=== PATIENT | female | born 1940 | race Hispanic/Latino ===

== ENCOUNTER 2017-04-22 16:18 | Emergency (ER) | payer OTHER, MEDICARE, BC ==
[~2017-04-22] VITALS: Ht 162.6 cm; Wt 98.4 kg
[~2017-04-22 16:18] MED LIST: ASPIR 8181 MG PO; AZITHROMYCIN250 MG PO; CEPHALEXIN PO; CEPHALEXIN500 MG PO; FEXOFENADINE HC60 MG PO; GABAPENTIN300 MG PO; GLUCOSAMINE1000 MG PO; LANSOPRAZOLE30 MG PO; LEVOTHYROXINE112 MCG PO; MYRBETRIQ PO; NEXIUM40 MG PO; NITROFURANTOIN100 MG PO; OMEPRAZOLE40 MG PO; SYNTHROID125 MCG PO; VITAMIN B-12 PO; VITAMIN C PO
--- OUTSIDE RECORDS SUMMARY | 2017-04-22 16:21 | XMS REPORT | Clinical Summary ---
Author Author [facility] Organization [facility] Address Unknown Phone Unavailable Care Team Providers Care Cocktail Lounge Manager Name Role Phone Asked, Given PCP Unavailable Allergies No Known Allergies Current Medications Prescription Sig. Disp. Refills Start End Date Status Date azithromycin (ZITHROMAX) 07/11/19 Active 250 MG tablet 17 YUVAFEM 10 mcg vaginal 06/15/19 Active tablet 17 levothyroxine (SYNTHROID, TOME 1 TABLETA TODOS LOS 1 06/17/19 Active LEVOXYL) 112 mcg tablet BLANCO 17 omeprazole (PriLOSEC) 40 08/11/19 Active MG capsule 17 terconazole (TERAZOL 7) 05/24/19 Active 0.4 % vaginal cream 17 nitrofurantoin, Take 100 mg by mouth 2 Active macrocrystal-monohydrate, (two) times a day. (MACROBID) 100 MG capsule meloxicam (MOBIC) 15 mg 11/24/19 Active tablet 17 nitrofurantoin 11/14/19 Active (MACRODANTIN) 100 MG 17 capsule triamcinolone (KENALOG) 11/30/19 Active 0.1 % cream 17 ciprofloxacin (CIPRO) 500 Take 1 tablet (500 mg 14 tablet 0 06/24/19 07/01/19 MG tablet total) by mouth 2 (two) 17 17 times a day for 7 days. cefuroxime (CEFTIN) 500 Take 1 tablet (500 mg 14 tablet 0 07/11/19 07/18/19 MG tabletIndications: total) by mouth 2 (two) 17 17 Acute cystitis without times a day for 7 days. hematuria nitrofurantoin, Take 1 capsule (100 mg 20 capsule 0 10/25/19 macrocrystal-monohydrate, total) by mouth 2 (two) 17 17 (MACROBID) 100 MG times a day for 10 days. capsuleIndications: Acute cystitis without hematuria minocycline (MINOCIN) 100 Take 1 capsule (100 mg 20 capsule 0 02/22/19 MG capsule total) by mouth 2 (two) 18 18 times a day for 10 days. nitrofurantoin, Take 1 capsule (100 mg 14 capsule 0 04/11/19 macrocrystal-monohydrate, total) by mouth 2 (two) 18 18 (MACROBID) 100 MG times a day for 7 days. capsuleIndications: Urinary tract infection without hematuria, site unspecified Active Problems Not on file Encounters Date Type Specialty Care Team Description 04/17/2017 Orders Only Urology Martha Jose MA Urinary tract infection without hematuria, site unspecified (Primary Dx) 04/17/2017 Telephone Urology Carlos Duong MD 04/10/2017 Orders Only Urology Martha Jose MA Urinary tract infection without hematuria, site unspecified (Primary Dx) 04/09/2017 Telephone Urology Carlos Duong MD 03/06/2017 Telephone Urology Martha Jose MA 02/12/2017 Telephone Urology Wen Rebollar MA 02/09/2017 Clinical Urology Carloz Mcclain MD Urinary tract infection Support without hematuria, site unspecified (Primary Dx) 02/09/2017 Telephone Urology Carlos Duong MD 01/03/2017 Telephone Urology Carlos Duong MD 12/18/2016 Office Visit Carlos Fontana Urinary tract infection MD Whitney without hematuria, site unspecified (Primary Dx) 12/13/2016 Telephone UrologCarlos Han Urinary tract infection MD Whitney without hematuria, site unspecified (Primary Dx) 11/13/2016 Procedure visit UrologCarlos Han Urinary tract infection MD Whitney without hematuria, site unspecified (Primary Dx) 11/08/2016 Telephone Carlos Fontana MD 10/24/2016 Orders Only Urology Martha Jose MA Acute cystitis without hematuria (Primary Dx) 10/20/2016 Telephone Urology Lynda Mitchell MA Urinary tract infection, site unspecified (Primary Dx) 09/11/2016 Telephone Urology Carlos Duong MD 08/30/2016 Telephone Urology Carlos Duong MD 08/29/2016 Telephone Urology Carlos Duong MD 08/28/2016 Office Visit Urology Carlos Duong Recurrent UTI (Primary N., Dx) 08/22/2016 Telephone Urology Lynda Mitchell MA Urinary tract infection, site unspecified (Primary Dx) 08/15/2016 Office Visit Urology Carlos Duong Recurrent UTI (Primary NDevin, Dx); Atrophic vaginitis 08/01/2016 Telephone Urology Carlos Duong Urinary tract infection, MD Whitney site unspecified (Primary Dx) 07/10/2016 Telephone Urology Martha Jose MA 07/10/2016 Orders Only Urology Martha Jose MA Acute cystitis without hematuria (Primary Dx) 07/06/2016 Orders Only Urology Carlos Duong MD 06/23/2016 Telephone Urology Lynda Mitchell MA 06/20/2016 Clinical Urology Carlos Duong Urinary tract infection, Support MD Whitney site unspecified (Primary Dx) after 04/21/2016 Family History Relation Name Status Comments Father Mother Social History Tobacco Use Types Packs/Day Years Used Date Never Smoker Alcohol Use Drinks/Week oz/Week Comments No Sex Assigned at Date Recorded Not on file Last Filed Vital Signs Not on file Plan of Treatment Health Maintenance Due Date Last Done Comments COLONOSCOPY 1992 MAMMOGRAM 1992 ZOSTER VACCINE 2002 PNEUMOCOCCAL 09/07/2007 POLYSACCHARIDE VACCINE AGE 65 AND OVER PNEUMOCOCCAL-13 09/07/2007 INFLUENZA VACCINE 09/05/2016 Results * Urine culture (03/06/2017 1:26 PM) Only the most recent of 7 results within the time period is included. Component Value Ref Range Urine culture No growth Specimen Performing Laboratory U[facility] Narrative Performed at:[id number] Junior Account Manager: Dimas Singh MD, Phone:[phone] * POC urinalysis dipstick (12/18/2016 2:25 PM) Only the most recent of 3 results within the time period is included. Component Value Ref Range Color urine, POC Yellow Clarity urine, POC Clear Glucose urine, POC Negative Negative Bilirubin urine, POC Negative Negative Ketones urine, POC Negative Negative Specific gravity urine, 1.025 1.005 - 1.030 POC Blood urine, POC Negative Negative pH urine, POC 5.5 5.0, 5.5, 6.0, 6.5, 7.0, 7.5, 8.0, 8.5 Protein urine, POC Negative Negative Urobilinogen urine, POC <2.0 <2.0 Nitrite urine, POC Negative Negative Leukocyte esterase urine, Negative Negative POC Specimen Performing Laboratory Urine * POC uroflowmetry (08/28/2016 3:40 PM) Component Value Ref Range Flow rate 215 ml/sec Specimen Performing Laboratory Urine Impressions Peak Flow: 9 ml/s Mean Flow; 7 ml/s Voiding Time: 29 sec Flow Time: 27 sec Time to Max Flow: 7 sec Voided VOlume: 215 ml * US Renal (08/28/2016 3:18 PM) Specimen Performing Laboratory [facility] [address] [place] [address] Narrative Renal Ultrasound: Bilateral renal Ultrasound is performed in Axial and longitudinal orientation. Diagnosis:UTI Right Kidney: Size: Length: 10.1 cm. X AP diameter: 4.3 cm. X Transverse 4.4 cm. Echogenicity: Normal Atrophy: No Cyst:No Mass:No Stone:No Hydronephrosis:noneGrade: Left Kidney: Size: Length: 10.9 cm. X AP diameter: 4.9 cm. X Transverse 4.9 cm. Echogenicity: Normal Atrophy: No Cyst:No Mass:No Stone:No Hydronephrosis:none Grade: Comments: Bilateral renal sonogram is unremarkable in this study. * Urine culture screen result (07/06/2016 11:01 AM) Component Value Ref Range Urine culture Klebsiella pneumoniae Greater than 100,000 colony forming units per mL (A) Specimen Performing Laboratory [facility] Narrative Performed at:[id number] Junior Account Manager: Dimas Singh MD, Phone:[phone] Specimen Comment: A duplicate report has been generated due to demographic updates. Organism Antibiotic Method Susceptibility Klebsiella pneumoniae Amoxicillin/Clavulanate R: Resistant Klebsiella pneumoniae Ampicillin R: Resistant Klebsiella pneumoniae Cefepime S: Susceptible Klebsiella pneumoniae Ceftriaxone S: Susceptible Klebsiella pneumoniae Cefuroxime S: Susceptible Klebsiella pneumoniae Cephalothin S: Susceptible Klebsiella pneumoniae Ciprofloxacin R: Resistant Klebsiella pneumoniae Ertapenem S: Susceptible Klebsiella pneumoniae Gentamicin R: Resistant Klebsiella pneumoniae Imipenem S: Susceptible Klebsiella pneumoniae Levofloxacin R: Resistant Klebsiella pneumoniae Nitrofurantoin I: Intermediate Klebsiella pneumoniae Piperacillin R: Resistant Klebsiella pneumoniae Tetracycline R: Resistant Klebsiella pneumoniae Tobramycin R: Resistant Klebsiella pneumoniae Trimethoprim/Sulfamethoxa R: Resistant zole Comment: Performed at: - [facility] [id number] Junior Account Manager: Dimas Singh MD, Phone: [phone] after 04/21/2016 Insurance Payer Benefit Subscriber ID Type Phone Address Plan / Group MEDICARE MEDICARE xxxxxxxxxx Medicare [place], [place] PART A AND B BCBS BCBS xxxxxxxxxxxx PPO CHOICE PPO[place] [address]
--- OUTSIDE RECORDS SUMMARY | 2017-04-22 16:22 | XMS REPORT ---
Author Author [facility] Address Unknown Phone Unavailable Care Team Providers Care Granite Countertop Installer Name Role Phone HUSEYIN OLIVAS Unavailable Unavailable OSIRIS WILSON Unavailable Unavailable Problems This patient has no known problems. Allergies, Adverse Reactions, Alerts This patient has no known allergies or adverse reactions. Medications This patient has no known medications. Results Test Description Test Time Test Comments Text Results Atomic Results Result Comments ELECTROLYTES 2017-04-16 16:35:00 SODIUM (BEAKER) (test gpsv=744) 137 meq/L 136-145 POTASSIUM (BEAKER) (test zqbd=111) 4.1 meq/L 3.5-5.1 Specimen slightly hemolyzed CHLORIDE (BEAKER) (test jwyy=747) 107 meq/L 98-107 CO2 (BEAKER) (test npzk=762) 24 meq/L 22-29 [id number] 16:35:00* Test Item Value Reference Range Comments GLUCOSE RANDOM (BEAKER) (test dpkf=175) 134 mg/dL 70-105 BUN AND [id number] 16:35:00* Test Item Value Reference Range Comments BLOOD UREA NITROGEN (BEAKER) (test btgv=323) 19 mg/dL 7-21 CREATININE (BEAKER) (test vmmm=482) 0.68 mg/dL 0.57-1.25 Specimen slightly hemolyzed EGFR (BEAKER) (test grpg=0494) 85 mL/min/1.73 sq m ESTIMATED GFR IS NOT ACCURATE CREATININE CLEARANCE IN PREDICTING GLOMERULAR FILTRATION RATE. ESTIMATED GFR IS NOT APPLICABLE FOR DIALYSIS PATIENTS. [id number] 16:18:00* Test Item Value Reference Range Comments HEMOGLOBIN (BEAKER) (test tldd=506) 12.8 GM/DL 11.2-15.7 CHEST [address] [facility] [address], [place] [address] Patient Name: JULES REVELES MR # : [id number] : 1940 Age/Sex: 76/F Re #: [id number] [facility] Physician: Ordered by: OSIRIS WILSON DPM Report #: [id number] Location: OR Room/Bed: Procedure: [id number] DX/CHEST 2 VIEWS Exam Date: 10/16/16 Exam Time: 1549 REPORT STATUS: Signed PROCEDURE: X-RAY CHEST, TWO VIEWS COMPARISON: [facility], DX, CHEST 2 VIEWS, 08/13/2015, 13:11. INDICATIONS: PRE-OP FOOT SURGERY TOMORROW FINDINGS: LUNGS: No consolidations or edema. The right hemidiaphragm remains elevated secondary to focal eventration anteriorly. PLEURA: No effusions or pneumothorax. Thickening of the minor fissure. HEART T MEDIASTINUM: The heart is within normal size-limits. Tortuous thoracic aorta. BONES T SOFT TISSUES: No acute findings. CONCLUSION: No acute thoracic abnormality. Jae Lewis D.O. Dictated by: Jae Lewis D.O. on 10/16/2016 at 17:50 Electronically approved by: Jae Lewis D.O. on 10/16/2016 at 17:50 Dictated By: JAE LEWIS DO 51 Transcribed By: SAJAN on 10/16/161749 COPY TO: OSIRIS WILSON DPM
[2017-04-22] MEDS ORDERED: ROBAXIN-750750 MG PO (17:10)
[2017-04-22] MEDS ORDERED: VALIUM5 MG PO (17:11)
[2017-04-22 18:04] VITALS: BP 118/62
== END 2017-04-22 17:25 | disposition home or self-care (01) ==
LOC: FSED 16:18
DX: G89.11 Acute pain due to trauma (principal); M54.2 Cervicalgia; V43.62XA Car passenger injured in collision with other type car in traffic accident, initial encounter; Y92.488 Other paved roadways as the place of occurrence of the external cause; E03.9 Hypothyroidism, unspecified; K21.9 Gastro-esophageal reflux disease without esophagitis
CPT/HCPCS: 99282

== ENCOUNTER 2017-07-07 15:03 | Emergency (ER) | payer MEDICARE, BC ==
[~2017-07-07] VITALS: Ht 157.5 cm; Wt 97.5 kg
[~2017-07-07 15:03] MED LIST changes: +ROBAXIN-750750 MG PO; +VALIUM5 MG PO
--- OUTSIDE RECORDS SUMMARY | 2017-07-07 15:06 | XMS REPORT | Clinical Summary ---
Author Author [facility] Address Unknown Phone Unavailable Care Team Providers Care Medical Economics Consultant Name Role Phone Asked, Given PCP Unavailable [...] (KENALOG) 11/30/19 Active 0.1 % cream 17 cefuroxime (CEFTIN) 500 Take 1 tablet (500 [...] Urinary tract infection without hematuria, site unspecified sulfamethoxazole-trimetho Take 1 tablet by mouth 2 20 tablet 0 05/05/19 prim (BACTRIM DS) 800-160 (two) times a day for 10 18 18 mg per tabletIndications: days. Urinary tract infection without hematuria, site unspecified nitrofurantoin Take 1 capsule (100 mg 21 capsule 0 05/17/19 (MACRODANTIN) 100 MG total) by mouth 3 (three) 18 18 capsuleIndications: times a day for 7 days. Urinary tract infection without hematuria, site unspecified fluconazole (DIFLUCAN) Take 1 tablet (100 mg 5 tablet 0 05/17/19 100 MG tabletIndications: total) by mouth daily for 18 18 Urinary tract infection 5 days. without hematuria, site unspecified cefuroxime (CEFTIN) 250 Take 1 tablet (250 mg 10 tablet 0 06/06/19 06/11/19 MG tabletIndications: total) by mouth 2 (two) 18 18 Urinary tract infection times a day for 5 days. without hematuria, site unspecified fluconazole (DIFLUCAN) Take 1.5 tablets (150 mg 5 tablet 0 06/30/19 07/03/19 100 MG tabletIndications: total) by mouth daily for 18 18 Yeast infection 3 days. Active Problems Not on file Encounters Date Type Specialty Care Team Description 06/29/2017 Orders Only Urology Martha Jose MA Yeast infection ( Primary Dx) 06/05/2017 Orders Only Urology Martha Jose MA Urinary tract infection without hematuria, site unspecified (Primary Dx) 06/01/2017 Telephone Urology Martha Jose MA 06/01/2017 Orders Only Urology Martha Jose MA Urinary tract infection without hematuria, site unspecified (Primary Dx) 05/16/2017 Orders Only Urology Jose, Martha, MA Urinary tract infection without hematuria, site unspecified (Primary Dx) 05/14/2017 Telephone Urology Carlos Duong MD 05/08/2017 Orders Only Urology Jose, Martha, MA Urinary tract infection without hematuria, site unspecified (Primary Dx) 05/07/2017 Orders Only UrologCarlos Han MD 04/25/2017 Orders Only Kwame Rick Jr., MD 04/24/2017 Telephone Urology Carlos Duong MD 04/24/2017 Orders Only Urology Jose, Martha, MA Urinary tract infection without hematuria, site unspecified (Primary Dx) 04/17/2017 Orders Only Urology Jose, Martha, MA Urinary tract infection without hematuria, site unspecified (Primary Dx) 04/17/2017 Telephone Urology Carlos Duong MD 04/10/2017 Orders Only Urology Jose, Martha, MA Urinary tract infection without hematuria, site unspecified (Primary Dx) 04/09/2017 Telephone Urology Carlos Duong MD 03/06/2017 Telephone Urology Martha Jose, MA 02/12/2017 Telephone Urology Wen Rebollar MA 02/09/2017 Clinical Urology Carloz Mcclain MD Urinary tract infection Support without hematuria, site unspecified (Primary Dx) 02/09/2017 Telephone Urology Carlos Duong MD 01/03/2017 Telephone Urology Carlos Duong MD 12/18/2016 Office Visit Carlos Fontana Urinary tract infection MD Whitney without hematuria, site unspecified (Primary Dx) 12/13/2016 Telephone Urology Carlos Duong Urinary tract infection MD Whitney without hematuria, site unspecified (Primary Dx) 11/13/2016 Procedure visit Carlos Fontana Urinary tract infection MD Whitney without hematuria, site unspecified (Primary Dx) 11/08/2016 Telephone UrologCarlos Han MD 10/24/2016 Orders Only Urology Jose, Martha, MA Acute cystitis without hematuria (Primary Dx) [...] 07/06/2016 Orders Only Urology Carlos Duong MD after 07/06/2016 Family History Relation Name Status Comments Father Mother Social History Tobacco Use Types Packs/Day Years Used Date Never Smoker Alcohol Use Drinks/Week oz/Week Comments No Sex Assigned at Date Recorded Not on file Last Filed Vital Signs Not on file Plan of Treatment Health Maintenance Due Date Last Done Comments BREAST CANCER SCREENING 1992 COLON CANCER SCREENING 1992 SHINGRIX VACCINE (#1) 1992 ZOSTER VACCINE 2002 PNEUMOCOCCAL 09/07/2007 POLYSACCHARIDE VACCINE AGE 65 AND OVER PNEUMOCOCCAL-13 09/07/2007 INFLUENZA VACCINE 09/05/2017 Results * Urine culture (06/01/2017 3:42 PM) Only the most recent of 8 results within the time period is included. Component Value Ref Range Urine culture Escherichia coli Greater than 100,000 colony forming units per mL (A) Comment: Cefazolin <=4 ug/mL Cefazolin with an FABRICIO <=16 predicts susceptibility to the oral agents cefaclor, cefdinir, cefpodoxime, cefprozil, cefuroxime, cephalexin, and loracarbef when used for therapy of uncomplicated urinary tract infections due to E. coli, Klebsiella pneumoniae, and Proteus mirabilis. Specimen Performing Laboratory Urine [facility] Narrative Performed at:[address] [place], [place] [id number] Brand Lead: Dimas Singh MD, Phone:[phone] Organism Antibiotic Method Susceptibility Escherichia coli Amoxicillin/Clavulanate S ug/mL: Susceptible Escherichia coli Ampicillin R ug/mL: Resistant Escherichia coli Cefepime S ug/mL: Susceptible Escherichia coli Ceftriaxone S ug/mL: Susceptible Escherichia coli Cefuroxime S ug/mL: Susceptible Escherichia coli Cephalothin S ug/mL: Susceptible Escherichia coli Ciprofloxacin S ug/mL: Susceptible Escherichia coli Ertapenem S ug/mL: Susceptible Escherichia coli Gentamicin S ug/mL: Susceptible Escherichia coli Imipenem S ug/mL: Susceptible Escherichia coli Levofloxacin S ug/mL: Susceptible Escherichia coli Nitrofurantoin S ug/mL: Susceptible Escherichia coli Piperacillin R ug/mL: Resistant Escherichia coli Tetracycline R ug/mL: Resistant Escherichia coli Tobramycin S ug/mL: Susceptible Escherichia coli Trimethoprim/Sulfamethoxa R ug/mL: Resistant zole Comment: Performed at: [address] [place] [id number] Brand Lead: Dimas Singh MD, Phone: [phone] * Organism identification, yeast (05/07/2017 4:27 PM) Component Value Ref Range Yeast ID Debbie albicans Fasting status N Specimen Performing Laboratory [facility] Narrative Performed at:[address] [place], [place] [id number] Brand Lead: Dimas Singh MD, Phone:[phone] * Aerobic Identification and Susceptibility (05/07/2017 4:27 PM) Component Value Ref Range Aerobe ID + suspect Escherichia coli (A) Aerobe ID + suspect Enterococcus faecalis Note: this isolate is vancomycin-susceptible. (A) Comment: This information is provided for epidemiologic purposes only: vancomycin is not among the antibiotics recommended for therapy of urinary tract infections caused by Enterococcus. Aerobe ID + suspect Yeast isolated (A)Comment: Identification to follow. Specimen Performing Laboratory [facility] Narrative Performed at:[address] [place], [place] [id number] Brand Lead: Dimas Singh MD, Phone:[phone] Organism Antibiotic Method Susceptibility Escherichia coli Amoxicillin/Clavulanate S ug/mL: Susceptible Escherichia coli Ampicillin R ug/mL: Resistant Escherichia coli Cefepime S ug/mL: Susceptible Escherichia coli Ceftriaxone S ug/mL: Susceptible Escherichia coli Cefuroxime S ug/mL: Susceptible Escherichia coli Cephalothin S ug/mL: Susceptible Escherichia coli Ciprofloxacin R ug/mL: Resistant Escherichia coli Ertapenem S ug/mL: Susceptible Escherichia coli Gentamicin S ug/mL: Susceptible Escherichia coli Imipenem S ug/mL: Susceptible Escherichia coli Levofloxacin R ug/mL: Resistant Escherichia coli Nitrofurantoin S ug/mL: Susceptible Escherichia coli Piperacillin R ug/mL: Resistant Escherichia coli Tetracycline S ug/mL: Susceptible Escherichia coli Tobramycin S ug/mL: Susceptible Escherichia coli Trimethoprim/Sulfamethoxa S ug/mL: Susceptible zole Comment: Performed at: [address] [place] [id number] Brand Lead: Dimas Singh MD, Phone: [phone] Enterococcus faecalis Ciprofloxacin S ug/mL: Susceptible Enterococcus faecalis Levofloxacin S ug/mL: Susceptible Enterococcus faecalis Nitrofurantoin S ug/mL: Susceptible Enterococcus faecalis Penicillin S ug/mL: Susceptible Enterococcus faecalis Tetracycline R ug/mL: Resistant Enterococcus faecalis Vancomycin S ug/mL: Susceptible Comment: Performed at: [address] [place] [id number] Brand Lead: Dimas Singh MD, Phone: [phone] * Test Code Change (05/07/2017 4:27 PM) Component Value Ref Range Test code change Comment Comment: Please note that the Microbiology test code was changed to reflect the specimen source or transport received. Fasting status N Specimen Performing Laboratory [facility] Narrative Performed at:[address] [place], [place] [id number] Brand Lead: Dimas Singh MD, Phone:[phone] * Specimen Status Report (05/07/2017 4:27 PM) Component Value Ref Range Specimen Status Report COMMENT Comment: Written Authorization Written Authorization Written Authorization Received. Authorization received from [employer] [place] 05-11-2017 Logged by Melody Payan Fasting status N Specimen Performing Laboratory [facility] Narrative Performed at:[address] [place], [place] [id number] Brand Lead: Dimas Singh MD, Phone:[phone] * Urine culture screen result (05/07/2017 4:27 PM) Only the most recent of 2 results within the time period is included. Component Value Ref Range Urine culture Mixed urogenital drea Greater than 100,000 colony forming units per mL Fasting status N Specimen Performing Laboratory [facility] Narrative Performed at: - [id number] Brand Lead: Dimas Singh MD, Phone:[phone] * Miscellaneous Imaging Result (04/25/2017) Specimen Performing Laboratory Blood * POC urinalysis dipstick (12/18/2016 2:25 PM) [...] Renal (08/28/2016 3:18 PM) Specimen Performing Laboratory [facility] [address] [place] [address] Narrative Renal Ultrasound: Bilateral renal Ultrasound is [...] renal sonogram is unremarkable in this study. after 07/06/2016 Insurance Payer Benefit Subscriber ID Type Phone Address Plan / Group MEDICARE MEDICARE xxxxxxxxxx Medicare [place], [place] PART A AND B BCBS BCBS xxxxxxxxxxxx PPO CHOICE PPO/PAT [place] PPO [place] [id number]
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
--- OUTSIDE RECORDS SUMMARY | 2017-07-07 15:06 | XMS REPORT | Clinical Summary ---
Author Author [facility] Address Unknown Phone Unavailable Care Team Providers Care Billposting Supervisor Name Role Phone PCP Unavailable Allergies Active Allergy Reactions Severity Noted Date Comments Sulfa (Sulfonamide 04/16/2017 confused Antibiotics) Pentazocine Lactate 04/16/2017 confused Hydrocodone-Acetaminophen 04/16/2017 confused Penicillins Rash Low 04/25/2017 Current Medications Prescription Sig. Disp. Refills Start End Date Status Date levothyroxine (SYNTHROID, Take 112 mcg by mouth Active LEVOTHROID) 112 MCG Every morning on an empty tablet stomach. mirabegron (MYRBETRIQ) 25 Take by mouth daily. Active mg Tb24 ER tablet omeprazole (PRILOSEC) 40 Take 40 mg by mouth Active MG capsule daily. aspirin 81 MG EC tablet Take 81 mg by mouth Active daily. ascorbic acid, vitamin C, Take 1,000 mg by mouth Active (VITAMIN C) 1000 MG daily. tablet b complex vitamins tablet Take 1 tablet by mouth Active daily. calcium carbonate Take 1 tablet by mouth Active (OS-FAREED) 500 mg tablet daily. 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/2017 Encounters Date Type Specialty Care Team Description 04/27/2017 Telephone Anesthesiology Anita Johnson Follow-up [facility] 04/26/2017 Telephone Anesthesiology Anita Johnson Follow-up [facility] 04/25/2017 [facility] Kwame Mays MD Encounter 04/25/2017 Procedure Pass 04/25/2017 Surgery Kwame Mays MD ARTHRODESIS,FOOT 04/24/2017 Anesthesia Antoni Tomas Event MD 04/16/2017 Hospital Pre-Admission Testing Kwame Mays MD Encounter 04/16/2017 Orders Only General Internal Medicine after 07/06/2016 Social History Tobacco Use Types Packs/Day Years Used Date Never Smoker Smokeless Tobacco: Never Used Alcohol Use Drinks/Week oz/Week Comments No Sex Assigned at Date Recorded Not on file Last Filed Vital Signs Vital Sign Reading Time Taken Blood Pressure 100/47 04/25/2017 4:30 PM CDT Pulse 67 04/25/2017 4:30 PM CDT Temperature 36.7 C (98 F) 04/25/2017 4:30 PM CDT Respiratory Rate 18 04/25/2017 4:30 PM CDT Oxygen Saturation 93% 04/25/2017 4:30 PM CDT Inhaled Oxygen - - Concentration Weight 100.7 kg (221 lb 14.4 oz) 04/25/2017 9:01 AM CDT Height 167.6 cm (5' 6") 04/25/2017 9:01 AM CDT Body Mass Index 35.82 04/25/2017 9:01 AM CDT Plan of Treatment Not on file Implants Implanted Type Area Coal Picker Device Expiration Model / Identifier Date Serial / Lot Scr Lowprf 6.7x80mm Ti [id number] [place]/Art Right: ARTHREX AR- 8967-18 - [id number] hroscopy Foot 80 / Implanted: Qty: 1 on 04/25/2017 by / Kwame Mays MD Scr W 60mm [id number] - [id number] [place]/Art Right: ARTHREX AR- 8967-28 Implanted: Qty: 1 on 04/25/2017 by hroscopy Foot 60 / Kwame Mays MD / Bone Grft Dmi Dbx Pty 1ml [id number] - Bone Right: MUSCULOSKELETAL 11/05 [id number] / [id number] Foot TRANSPLANT FND [id number] Implanted: Qty: 1 on 04/25/2017 by [id number] / Kwame Mays MD Tiss Bngr Jose Can Strut 6cm Bone Right: MUSCULOSKELETAL 05/07/2019 [id number] / [id number] - [id number] Foot TRANSPLANT FND [id number] Implanted: Qty: 1 on 04/25/2017 by [id number] / Kwame Mays MD Scr Kirstie 3.5x30mm Ar-8935l-30 - Fracture/F Right: ARTHREX AR-8935L-3 [id number] ixation Foot 0 / Implanted: Qty: 1 on 04/25/2017 / Scr Ti Low Pro Kirstie 3.5x16mm Fracture/F Right: ARTHREX AR-8935L-1 Ar-8935l-16 - [id number] ixation Foot 6 / Implanted: Qty: 1 on 04/25/2017 by / Kwame Mays MD Scr Kirstie 28mm Ar-8935l-28 - Fracture/F Right: ARTHREX AR-8935L-2 [id number] ixation Foot 8 / Implanted: Qty: 1 on 04/25/2017 by / Kwame Mays MD Plt Medial 3.5mm Sm R [id number] Fracture/F Right: ARTHREX AR- 8952MC- - [id number] ixation Foot SR / Implanted: Qty: 1 on 04/25/2017 by / Kwame Mays MD [id number] Scr Non Kirstie Lp 3.5x20mm Ti Fracture/F Right: ARTHREX AR-8935-20 Ar-8935-20 - [id number] ixation Foot / Implanted: Qty: 1 on 04/25/2017 by / Kwame Mays MD Scr Non Kirstie Lp 3.5x36mm Ti Fracture/F Right: ARTHREX AR-8935-36 Ar-8935-36 - [id number] ixation Foot / Implanted: Qty: 1 on 04/25/2017 by / Kwame Mays MD Scr Non Kirstie Lp 3.5x24mm Ti Fracture/F Right: ARTHREX AR-8935-24 Ar-8935-24 - [id number] ixation Foot / Implanted: Qty: 1 on 04/25/2017 by / Kwame Mays MD Scr Ti Low Pro Kirstie 3.5x20mm Fracture/F Right: ARTHREX AR-8935L-2 Ar-8935l-20 - [id number] ixation Foot 0 / Implanted: Qty: 1 on 04/25/2017 by / Kwame Mays MD Explanted Type Area Coal Picker Device Expiration Model / Identifier Date Serial / Lot Scr Kirstie 3.5x30mm Ar-8935l-30 - Fracture/F Right: ARTHREX AR-8935L-3 [id number] ixation Foot 0 / Explanted: Qty: 1 on 04/25/2017 / Scr Non Kirstie Lp 3.5x18mm Ti Fracture/F Right: ARTHREX AR-8935-18 Ar-8935-18 - [id number] ixation Foot / Explanted: Qty: 1 on 04/25/2017 by / Kwame Mays MD Procedures Procedure Name Priority Date/Time Associated Diagnosis Comments PROCEDURE W/ C-ARM 04/25/2017 DJD (degenerative joint 10:15 AM CDT disease), ankle and foot, right Special Needs (GENERAL W/ PREOP CONTINUOUS BLOCK, C-ARM/TECH , ARTHREX CANNULATED SCREWS, MID FOOT PLATE) ARTHRODESIS,FOOT 04/25/2017 DJD (degenerative joint 10:15 AM CDT disease), ankle and foot, right Special Needs (GENERAL W/ PREOP CONTINUOUS BLOCK, C-ARM/TECH , ARTHREX CANNULATED SCREWS, MID FOOT PLATE) after 07/06/2016 Results * FL grade tamper in or 30 minute increments (04/25/2017 12:09 PM) Specimen Performing Laboratory GE RIS Narrative FINAL REPORT Intraoperative fluoroscopy. CLINICAL HISTORY: right subtalar arthritis. FINDINGS: Six fluoroscopically acquired images were acquired by the referring physician. An intraoperative verbal report was not requested. Fluoroscopy was not performed by the undersigned. Fluoroscopy time: 14 seconds. Six images. Signed: Ranulfo Nicolas MD Report Verified Date/Time:04/25/2017 13:31:32 Reading Location: [address] Radiology Reading Room Procedure Note Interface, External Ris In - 04/25/2017 1:33 PM CDT FINAL REPORT Intraoperative fluoroscopy. CLINICAL HISTORY: right subtalar arthritis. FINDINGS: Six fluoroscopically acquired images were acquired by the referring physician. An intraoperative verbal report was not requested. Fluoroscopy was not performed by the undersigned. Fluoroscopy time: 14 seconds. Six images. Signed: Ranulfo Nicolas MD Report Verified Date/Time: 04/25/2017 13:31:32 Reading Location: [address] Radiology Reading Room * ANESTHESIA PERIPHERAL BLOCK (04/25/2017 10:14 AM) Only the most recent of 2 results within the time period is included. Narrative Kyle Pritchard MD 04/25/2017 10:14 AM Peripheral Block Patient location during procedure: pre-op Start time: 04/25/2017 9:43 AM End time: 04/25/2017 9:52 AM Reason for block: procedure for pain, at surgeon's request and post-op pain management Staffing Anesthesiologist: KYLE PRITCHARD Performed by: anesthesiologist Preanesthetic Checklist Completed: patient identified, site marked, surgical consent, pre-op evaluation, timeout performed, IV checked, risks and benefits discussed and monitors and equipment checked Peripheral Block Patient position: supine Prep: ChloraPrep and site prepped and draped Patient monitoring: heart rate, rn cardiac and continuous pulse ox Block type: Adductor canal Laterality: right Injection technique: single-shot Procedures: ultrasound guided and landmark technique Local infiltration: ropivicaine Infiltration strength: 0.5 % Dose: 20 mL Needle Needle type: pajunk nanoline. Needle gauge: 21 G Needle length: 100 mm Test dose: negative Assessment Injection assessment: negative aspiration for heme, no paresthesia on injection, incremental injection and local visualized surrounding nerve on ultrasound Paresthesia pain: none Heart rate change: no Slow fractionated injection: yes Additional Notes Patient tolerated well.No pain on injection or throughout procedure. Procedure Note Kyle Pritchard MD - 04/25/2017 10:13 AM CDT Peripheral Block Patient location during procedure: pre-op Start time: 04/25/2017 9:43 AM End time: 04/25/2017 9:52 AM Reason for block: procedure for pain, at surgeon's request and post-op pain management Staffing Anesthesiologist: KYLE PRITCHARD Performed by: anesthesiologist Preanesthetic Checklist Completed: patient identified, site marked, surgical consent, pre-op evaluation , timeout performed, IV checked, risks and benefits discussed and monitors and equipment checked Peripheral Block Patient position: supine Prep: ChloraPrep and site prepped and draped Patient monitoring: heart rate, rn cardiac and continuous pulse ox Block type: Adductor canal Laterality: right Injection technique: single-shot Procedures: ultrasound guided and landmark technique Local infiltration: ropivicaine Infiltration strength: 0.5 % Dose: 20 mL Needle Needle type: pajunk nanoline. Needle gauge: 21 G Needle length: 100 mm Test dose: negative Assessment Injection assessment: negative aspiration for heme, no paresthesia on injection , incremental injection and local visualized surrounding nerve on ultrasound Paresthesia pain: none Heart rate change: no Slow fractionated injection: yes Additional Notes Patient tolerated well. No pain on injection or throughout procedure. * BUN and Creatinine (04/16/2017 3:41 PM) Component Value Ref Range BUN 19 7 - 21 mg/dL Creatinine 0.68Comment: Specimen slightly hemolyzed 0.57 - 1.25 mg/dL EGFR 85Comment: ESTIMATED GFR IS NOT ACCURATE mL/min/1.73 sq m CREATININE CLEARANCE IN PREDICTING GLOMERULAR FILTRATION RATE. ESTIMATED GFR IS NOT APPLICABLE FOR DIALYSIS PATIENTS. Specimen Performing Laboratory Blood [address] [address] * Hemoglobin (04/16/2017 3:41 PM) Component Value Ref Range Hemoglobin 12.8 11.2 - 15.7 GM/DL Specimen Performing Laboratory Blood [address] [address] * Glucose (04/16/2017 3:41 PM) Component Value Ref Range Glucose 134 (H) 70 - 105 mg/dL Specimen Performing Laboratory [address] [address] * Electrolytes (04/16/2017 3:41 PM) Component Value Ref Range Sodium 137 136 - 145 meq/L Potassium 4.1Comment: Specimen slightly hemolyzed 3.5 - 5.1 meq/L Chloride 107 98 - 107 meq/L CO2 24 22 - 29 meq/L Specimen Performing Laboratory Blood [address] [address] * ECG 12 lead (04/16/2017 2:41 PM) Specimen Performing Laboratory GE MUSE Narrative Ventricular Rate 64 BPM Atrial Rate 64 BPM P-R Interval 186 ms QRS Duration 92 ms Q-T Interval 438 ms QTC Calculation(Bazett) 451 ms P [place] 51 degrees R [place] -10 degrees T [place] 62 degrees Normal sinus rhythm Normal ECG When compared with ECG of 15-NOV-2004 12:54, No significant change was found Confirmed by MD KEY YOCHAI ([id number]) on 04/17/2017 6:40:01 AM Procedure Note Interface, External Ris In - 04/17/2017 6:40 AM CDT Ventricular Rate 64 BPM Atrial Rate 64 BPM P-R Interval 186 ms QRS Duration 92 ms Q-T Interval 438 ms QTC Calculation(Bazett) 451 ms P [place] 51 degrees R [place] -10 degrees T [place] 62 degrees Normal sinus rhythm Normal ECG When compared with ECG of 15-NOV-2004 12:54, No significant change was found Confirmed by MD KEY YOCHAI ([id number]) on 04/17/2017 6:40:01 AM after 07/06/2016
[2017-07-07] MEDS ORDERED: CEFAZOLIN SOD 1 GM/NS 50ML 50 ML IV ONE ×2 (15:30→17:15)
== END 2017-07-07 18:00 | disposition home or self-care (01) ==
LOC: FSED 15:03
DX: M79.661 Pain in right lower leg (principal); L03.115 Cellulitis of right lower limb
CPT/HCPCS: 81003; 85025; 93971; 96365; 99284

== ENCOUNTER → 2018-07-12 | Outpatient (CLI) | payer MEDICARE, BC | LOC: RAD 13:38 | PROVIDERS: ATTEND Surgery | DX: L97.519 Non-pressure chronic ulcer of other part of right foot with unspecified severity (principal) | CPT/HCPCS: 93925; 93970 ==

== ENCOUNTER 2018-10-29 12:00 | Outpatient (RCR) | payer MEDICARE, BC ==
[2018-10-29] MEDS ORDERED: LIDOCAINE/PRILOCAINE 2.5-2.5% KIT ONE (14:21)
[2018-11-05] MEDS ORDERED: LIDOCAINE/PRILOCAINE 2.5-2.5% KIT ONE ×2 (12:42)
== END 2018-11-04 ==
LOC: WCC 12:00
PROVIDERS: ATTEND Family Medicine Adult Medicine
DX: T81.32XA Disruption of internal operation (surgical) wound, not elsewhere classified, initial encounter (principal); M96.89 Other intraoperative and postprocedural complications and disorders of the musculoskeletal system; I87.2 Venous insufficiency (chronic) (peripheral); R60.0 Localized edema; E03.9 Hypothyroidism, unspecified; M13.80 Other specified arthritis, unspecified site
CPT/HCPCS: 87071; 87075; 87186; 87205

== ENCOUNTER → 2018-10-29 | Outpatient (CLI) | payer MEDICARE, BC ==
--- NOTE | 2018-10-29 15:59 | Diagnostic Imaging Report ---
EXAMINATION: ANKLE 3 + VIEWS RIGHT, FOOT RIGHT COMPLETE INDICATION: Soft tissue wound, injury COMPARISON: None FINDINGS: AP, lateral, and mortise views of the right ankle and AP and lateral and oblique views of the right foot were obtained. Right foot: There are postoperative changes of prior internal fixation involving the talus and navicular. 2 screw fragments remain within the talus. There is sclerosis and partial bony bridging along an old talar fracture. No acute fracture or dislocation. No specific radiographic evidence of osteomyelitis. Small plantar calcaneal spur. Right ankle: Post surgical findings as above. No acute fracture or dislocation. The ankle mortise is intact and symmetric. Soft tissue swelling about the right ankle. IMPRESSION: No acute fracture or dislocation. No specific radiographic evidence of osteomyelitis. Postoperative and posttraumatic changes of the right talus. Signed by: Cristino Casillas MD on 10/29/2018 3:56 PM
== END ==
LOC: RAD 14:47
PROVIDERS: ATTEND Family Medicine Adult Medicine
DX: T81.32XA Disruption of internal operation (surgical) wound, not elsewhere classified, initial encounter (principal)

== ENCOUNTER 2018-11-05 14:21 | Outpatient (RCR) | payer MEDICARE, BC | END 2018-12-05 | LOC: WCC 14:21 | PROVIDERS: ATTEND Family Medicine Adult Medicine | DX: T81.32XA Disruption of internal operation (surgical) wound, not elsewhere classified, initial encounter (principal); M96.89 Other intraoperative and postprocedural complications and disorders of the musculoskeletal system; I87.2 Venous insufficiency (chronic) (peripheral); R60.0 Localized edema; M13.80 Other specified arthritis, unspecified site; B96.89 Other specified bacterial agents as the cause of diseases classified elsewhere; B95.2 Enterococcus as the cause of diseases classified elsewhere; E03.9 Hypothyroidism, unspecified ==

== ENCOUNTER 2018-12-30 14:22 | Outpatient (RCR) | payer MEDICARE, BC ==
[~2018-12-30 14:22] MED LIST changes: +LIDOCAINE VISC 2% SOLN 15 ML UDC ONE; +LIDOCAINE/PRILOCAINE 2.5-2.5% KIT ONE
[2018-12-30] MEDS ORDERED: LIDOCAINE VISC 2% SOLN 15 ML UDC ONE (18:24)
== END 2019-01-04 ==
LOC: WCC 14:22
PROVIDERS: ATTEND Family Medicine Adult Medicine
DX: T81.32XA Disruption of internal operation (surgical) wound, not elsewhere classified, initial encounter (principal); M96.89 Other intraoperative and postprocedural complications and disorders of the musculoskeletal system; I87.2 Venous insufficiency (chronic) (peripheral); R60.0 Localized edema; B95.2 Enterococcus as the cause of diseases classified elsewhere; B96.89 Other specified bacterial agents as the cause of diseases classified elsewhere; E03.9 Hypothyroidism, unspecified; M13.80 Other specified arthritis, unspecified site

== ENCOUNTER 2019-04-04 16:59 | Outpatient (RCR) | payer MEDICARE, BC ==
--- NOTE | 2019-03-11 16:03 | Progress Note ---
DATE: 03/11/2019 Followup Progress Note SUBJECTIVE: The patient came to [facility] today for a followup visit. PHYSICAL EXAMINATION: Ulcer on distal medial right foot is slightly smaller and covered with 100% marinelli slough. There is no malodor or periulcer skin erythema identified. The ulcer is probable to bone. The patient states that her pain in right foot/ankle has gone down to 5. She completed the course of oral cefdinir 300 mg twice daily today. PROCEDURE NOTE: After obtaining consent from the patient, a time-out was performed. The patient refused site marking. After checking the patient's allergies, EMLA was applied to the ulcer on bilateral right foot. Full-thickness sharp surgical debridement to subcutaneous tissue was performed with curette without complications. Hemostasis was achieved with pressure. An allogeneic EpiFix graft obtained from the human placenta #3 was applied to the ulcer on medial right foot to promote granulation tissue and to aid in covering the probable bone. This procedure was performed in a sterile manner. The EpiFix graft was then secured with steri-strips and compression dressing with Drawtex was applied over the graft. Lot number of the graft [id number]. The expiration date of graft is 2023-11-06. The pre and post surgical measurements are recorded. The EpiFix used is 18.0 mm, which is equal to 3 cm2. 100% of the graft was used. There was no wastage of the graft. DIAGNOSES: 1. Chronic venous stasis ulcers, distal medial right foot. 2. Cellulitis, right foot, resolved. PLAN: 1. Change secondary dressing over EpiFix graft twice weekly at [facility], distal medial right foot. 2. The patient is instructed to call Infectious Disease, Dr. Ceballos's office today to ask whether she is going to give her additional 1 to 2 weeks of oral cefdinir. The patient verbalized understanding. 3. Continue wearing knee high elastic compression stockings on bilateral lower extremities for edema control daily. Remove them at night. 4. Continue taking Geoff daily for optimal wound healing. 5. Continue taking vitamin C daily for optimal wound healing. 6. Return to [facility] in 1 week for followup visit with . MD MARIAM Pate/RAPHAEL /[id number]
[~2019-04-04 16:59] MED LIST changes: -LIDOCAINE VISC 2% SOLN 15 ML UDC ONE; +MINERAL OIL/PETROLAT/GLYCERI 6OZ BTL ONE
== END 2019-04-05 ==
LOC: WCC 16:59
PROVIDERS: ATTEND Family Medicine Adult Medicine
DX: I87.331 Chronic venous hypertension (idiopathic) with ulcer and inflammation of right lower extremity (principal); M96.89 Other intraoperative and postprocedural complications and disorders of the musculoskeletal system; L97.811 Non-pressure chronic ulcer of other part of right lower leg limited to breakdown of skin; L03.818 Cellulitis of other sites; I87.2 Venous insufficiency (chronic) (peripheral); R60.0 Localized edema; I10 Essential (primary) hypertension; M13.80 Other specified arthritis, unspecified site; B96.89 Other specified bacterial agents as the cause of diseases classified elsewhere; E03.9 Hypothyroidism, unspecified
CPT/HCPCS: 15275 ×4; 29581 ×5; 99213 ×6; Q4186 ×4

== ENCOUNTER 2019-04-15 10:55 | Outpatient (RCR) | payer MEDICARE, BC ==
[2019-04-15] MEDS ORDERED: MINERAL OIL/PETROLAT/GLYCERI 6OZ BTL ONE (14:15)
== END 2019-05-06 ==
LOC: WCC 10:55
PROVIDERS: ATTEND Family Medicine Adult Medicine
DX: I87.331 Chronic venous hypertension (idiopathic) with ulcer and inflammation of right lower extremity (principal); M96.89 Other intraoperative and postprocedural complications and disorders of the musculoskeletal system; L97.811 Non-pressure chronic ulcer of other part of right lower leg limited to breakdown of skin; L03.116 Cellulitis of left lower limb; I87.2 Venous insufficiency (chronic) (peripheral); R60.0 Localized edema; I10 Essential (primary) hypertension; E03.9 Hypothyroidism, unspecified; B96.89 Other specified bacterial agents as the cause of diseases classified elsewhere; M13.80 Other specified arthritis, unspecified site
CPT/HCPCS: 15275; 29581; 99213 ×3; Q4186

== ENCOUNTER 2019-05-29 11:18 | Outpatient (RCR) | payer MEDICARE, BC ==
[~2019-05-29 11:18] MED LIST changes: -LIDOCAINE/PRILOCAINE 2.5-2.5% KIT ONE
== END 2019-06-05 ==
LOC: WCC 11:18
PROVIDERS: ATTEND Family Medicine Adult Medicine
DX: I87.331 Chronic venous hypertension (idiopathic) with ulcer and inflammation of right lower extremity (principal); L97.811 Non-pressure chronic ulcer of other part of right lower leg limited to breakdown of skin; I87.2 Venous insufficiency (chronic) (peripheral); R60.0 Localized edema; I10 Essential (primary) hypertension; E03.9 Hypothyroidism, unspecified; M13.80 Other specified arthritis, unspecified site; M96.89 Other intraoperative and postprocedural complications and disorders of the musculoskeletal system

== ENCOUNTER 2019-06-26 13:39 | Outpatient (RCR) | payer MEDICARE, BC ==
[~2019-06-26 13:39] MED LIST changes: -MINERAL OIL/PETROLAT/GLYCERI 6OZ BTL ONE
== END 2019-07-06 ==
LOC: WCC 13:39
PROVIDERS: ATTEND Family Medicine Adult Medicine
DX: I87.331 Chronic venous hypertension (idiopathic) with ulcer and inflammation of right lower extremity (principal); M96.89 Other intraoperative and postprocedural complications and disorders of the musculoskeletal system; L97.811 Non-pressure chronic ulcer of other part of right lower leg limited to breakdown of skin; I87.2 Venous insufficiency (chronic) (peripheral); R60.0 Localized edema; I10 Essential (primary) hypertension; M13.80 Other specified arthritis, unspecified site; E03.9 Hypothyroidism, unspecified

== ENCOUNTER 2019-10-30 14:21 | Outpatient (RCR) | payer MEDICARE, BC | END 2019-11-05 | LOC: WCC 14:21 | PROVIDERS: ATTEND Family Medicine Adult Medicine | DX: I87.331 Chronic venous hypertension (idiopathic) with ulcer and inflammation of right lower extremity (principal); M96.89 Other intraoperative and postprocedural complications and disorders of the musculoskeletal system; L97.811 Non-pressure chronic ulcer of other part of right lower leg limited to breakdown of skin; I87.2 Venous insufficiency (chronic) (peripheral); R60.0 Localized edema; I10 Essential (primary) hypertension; E03.9 Hypothyroidism, unspecified; M13.80 Other specified arthritis, unspecified site | CPT/HCPCS: 87071; 87075; 87186; 87205 ==

== ENCOUNTER 2019-11-20 13:50 | Outpatient (RCR) | payer MEDICARE, BC ==
[2019-12-05] MEDS ORDERED: BUPIVACAINE 0.25% 30ML SDV INJ ONE (07:18)
== END 2019-12-06 ==
LOC: WCC 13:50
PROVIDERS: ATTEND Family Medicine Adult Medicine
DX: I87.331 Chronic venous hypertension (idiopathic) with ulcer and inflammation of right lower extremity (principal); M96.89 Other intraoperative and postprocedural complications and disorders of the musculoskeletal system; L97.811 Non-pressure chronic ulcer of other part of right lower leg limited to breakdown of skin; I87.2 Venous insufficiency (chronic) (peripheral); R60.0 Localized edema; I10 Essential (primary) hypertension; E03.9 Hypothyroidism, unspecified; M13.80 Other specified arthritis, unspecified site; B96.89 Other specified bacterial agents as the cause of diseases classified elsewhere

== ENCOUNTER 2019-12-25 14:42 | Outpatient (RCR) | payer MEDICARE, BC | END 2020-01-05 | LOC: WCC 14:42 | PROVIDERS: ATTEND Family Medicine Adult Medicine | DX: I87.331 Chronic venous hypertension (idiopathic) with ulcer and inflammation of right lower extremity (principal); M96.89 Other intraoperative and postprocedural complications and disorders of the musculoskeletal system; L97.811 Non-pressure chronic ulcer of other part of right lower leg limited to breakdown of skin; B96.89 Other specified bacterial agents as the cause of diseases classified elsewhere; R60.0 Localized edema; I87.2 Venous insufficiency (chronic) (peripheral); I10 Essential (primary) hypertension; E03.9 Hypothyroidism, unspecified; M13.80 Other specified arthritis, unspecified site ==

== ENCOUNTER 2020-09-21 09:50 | Outpatient (RCR) | payer MEDICARE, BC ==
[2020-09-14 12:54] LABS: BASOPHILS % 0.5 % (0.0-1.0); EOSINOPHILS # (AUTO) 0.2 (0.0-0.4); EOSINOPHILS % 2.7 % (0.0-6.0); HEMATOCRIT 40.5 % (34.2-44.1); HEMOGLOBIN 13.1 g/dL (12.0-16.0); LYMPHOCYTES # (AUTO) 2.7 (1.0-3.2); LYMPHOCYTES % 43.8 % (18.0-39.1); MEAN CORPUSCULAR HEMOGLOBIN 32.2 pg (28-32); MEAN CORPUSCULAR HGB CONC 32.3 g/dL (31-35); MEAN CORPUSCULAR VOLUME 99.5 fL (81-99); MONOCYTES # (AUTO) 0.7 (0.2-0.8); MONOCYTES % 10.4 % (4.4-11.3); NEUTROPHILS # (AUTO) 2.6 (2.1-6.9); NEUTROPHILS % 42.3 % (38.7-80.0); PLATELET COUNT 294 x10e3/uL (140-360); RED BLOOD COUNT 4.07 x10e6/uL (3.6-5.1); RED CELL DISTRIBUTION WIDTH 14.6 % (11.7-14.4)
[2020-09-14 13:16] LABS: ALBUMIN 3.2 g/dL (3.5-5.0); ALBUMIN/GLOBULIN RATIO 0.8 (0.8-2.0); CALCIUM 8.5 mg/dL (8.4-10.2); CREATININE, SERUM 0.64 mg/dL (0.57-1.11)
[~2020-09-21 09:50] MED LIST changes: +LIDOCAINE/PRILOCAINE 2.5-2.5% KIT ONE
== END 2020-10-05 ==
LOC: WCC 09:50
PROVIDERS: ATTEND Family Medicine Adult Medicine
DX: I87.331 Chronic venous hypertension (idiopathic) with ulcer and inflammation of right lower extremity (principal); M96.89 Other intraoperative and postprocedural complications and disorders of the musculoskeletal system; L97.311 Non-pressure chronic ulcer of right ankle limited to breakdown of skin; R60.0 Localized edema; I10 Essential (primary) hypertension; E03.9 Hypothyroidism, unspecified; M13.80 Other specified arthritis, unspecified site
CPT/HCPCS: 36415; 80053; 83036; 84134; 85025; 87071; 87075; 87186; 87205

== ENCOUNTER 2020-12-02 11:37 | Outpatient (RCR) | payer MEDICARE, BC ==
[2020-11-25 15:09] LABS: BASOPHILS % 0.3 % (0.0-1.0); EOSINOPHILS # (AUTO) 0.2 (0.0-0.4); EOSINOPHILS % 3.1 % (0.0-6.0); HEMATOCRIT 39.9 % (34.2-44.1); HEMOGLOBIN 12.9 g/dL (12.0-16.0); LYMPHOCYTES # (AUTO) 2.7 (1.0-3.2); MEAN CORPUSCULAR HGB CONC 32.3 g/dL (31-35); MONOCYTES # (AUTO) 0.7 (0.2-0.8); MONOCYTES % 10.2 % (4.4-11.3); NEUTROPHILS # (AUTO) 3.1 (2.1-6.9); NEUTROPHILS % 46.1 % (38.7-80.0); PLATELET COUNT 298 x10e3/uL (140-360); RED BLOOD COUNT 4.03 x10e6/uL (3.6-5.1); RED CELL DISTRIBUTION WIDTH 13.3 % (11.7-14.4)
[2020-11-25 15:30] LABS: ALBUMIN 3.2 g/dL (3.5-5.0); ALBUMIN/GLOBULIN RATIO 0.9 (0.8-2.0); CALCIUM 8.5 mg/dL (8.4-10.2); CREATININE, SERUM 0.66 mg/dL (0.57-1.11)
[~2020-12-02 11:37] MED LIST changes: -LIDOCAINE/PRILOCAINE 2.5-2.5% KIT ONE
== END 2020-12-05 ==
LOC: WCC 11:37
PROVIDERS: ATTEND Family Medicine Adult Medicine
DX: I87.311 Chronic venous hypertension (idiopathic) with ulcer of right lower extremity (principal); M96.89 Other intraoperative and postprocedural complications and disorders of the musculoskeletal system; L97.311 Non-pressure chronic ulcer of right ankle limited to breakdown of skin; R60.0 Localized edema; I10 Essential (primary) hypertension; E03.9 Hypothyroidism, unspecified; M13.80 Other specified arthritis, unspecified site
CPT/HCPCS: 36415; 80053; 83036; 84134; 85025; 87071; 87075; 87186; 87205

== ENCOUNTER → 2020-12-09 | Outpatient (CLI) | payer MEDICARE, BC | LOC: MRI 14:07 | PROVIDERS: ATTEND Orthopaedic Surgery | DX: L02.415 Cutaneous abscess of right lower limb (principal) ==

== ENCOUNTER 2020-12-23 10:41 | Outpatient (RCR) | payer MEDICARE, BC ==
[~2020-12-23 10:41] MED LIST changes: +LIDOCAINE/PRILOCAINE 2.5-2.5% KIT ONE; +MUPIROCIN 2% OINT 22 GM TUBE ONE
== END 2021-01-04 ==
LOC: WCC 10:41
PROVIDERS: ATTEND Family Medicine Adult Medicine
DX: I87.311 Chronic venous hypertension (idiopathic) with ulcer of right lower extremity (principal); M96.89 Other intraoperative and postprocedural complications and disorders of the musculoskeletal system; L97.311 Non-pressure chronic ulcer of right ankle limited to breakdown of skin; R60.0 Localized edema; I10 Essential (primary) hypertension; E03.9 Hypothyroidism, unspecified; M13.80 Other specified arthritis, unspecified site; B96.4 Proteus (mirabilis) (morganii) as the cause of diseases classified elsewhere; B96.89 Other specified bacterial agents as the cause of diseases classified elsewhere

== ENCOUNTER 2021-01-20 12:40 | Outpatient (RCR) | payer MEDICARE, BC ==
[~2021-01-20 12:40] MED LIST changes: +LIDOCAINE VISC 2% SOLN 15 ML UDC ONE
== END 2021-02-04 ==
LOC: WCC 12:40
PROVIDERS: ATTEND Family Medicine Adult Medicine
DX: I87.311 Chronic venous hypertension (idiopathic) with ulcer of right lower extremity (principal); M96.89 Other intraoperative and postprocedural complications and disorders of the musculoskeletal system; L97.311 Non-pressure chronic ulcer of right ankle limited to breakdown of skin; R60.0 Localized edema; I10 Essential (primary) hypertension; B96.4 Proteus (mirabilis) (morganii) as the cause of diseases classified elsewhere; M13.80 Other specified arthritis, unspecified site; B96.89 Other specified bacterial agents as the cause of diseases classified elsewhere; E03.9 Hypothyroidism, unspecified
CPT/HCPCS: 87071; 87075; 87205

== ENCOUNTER 2021-03-01 11:01 | Outpatient (RCR) | payer MEDICARE, BC ==
[~2021-03-01 11:01] MED LIST changes: -LIDOCAINE VISC 2% SOLN 15 ML UDC ONE; -LIDOCAINE/PRILOCAINE 2.5-2.5% KIT ONE; +MINERAL OIL/PETROLAT/GLYCERI 6OZ BTL ONE
[2021-03-01] MEDS ORDERED: LIDOCAINE VISC 2% SOLN 15 ML UDC ONE (19:41)
== END 2021-03-07 ==
LOC: WCC 11:01
PROVIDERS: ATTEND Family Medicine Adult Medicine
DX: I87.311 Chronic venous hypertension (idiopathic) with ulcer of right lower extremity (principal); M96.89 Other intraoperative and postprocedural complications and disorders of the musculoskeletal system; L97.311 Non-pressure chronic ulcer of right ankle limited to breakdown of skin; R60.0 Localized edema; I10 Essential (primary) hypertension; E03.9 Hypothyroidism, unspecified; B96.4 Proteus (mirabilis) (morganii) as the cause of diseases classified elsewhere; B96.89 Other specified bacterial agents as the cause of diseases classified elsewhere; M13.80 Other specified arthritis, unspecified site

== ENCOUNTER 2021-03-22 11:50 | Outpatient (RCR) | payer MEDICARE, BC ==
[~2021-03-22 11:50] MED LIST changes: -MINERAL OIL/PETROLAT/GLYCERI 6OZ BTL ONE; -MUPIROCIN 2% OINT 22 GM TUBE ONE
[2021-03-22] MEDS ORDERED: MUPIROCIN 2% OINT 22 GM TUBE ONE ×3 (13:14→13:15)
[2021-03-22] MEDS ORDERED: LIDOCAINE VISC 2% SOLN 15 ML UDC ONE ×3 (13:14→13:15)
== END 2021-04-04 ==
LOC: WCC 11:50
PROVIDERS: ATTEND Family Medicine Adult Medicine
DX: I87.311 Chronic venous hypertension (idiopathic) with ulcer of right lower extremity (principal); M96.89 Other intraoperative and postprocedural complications and disorders of the musculoskeletal system; L97.311 Non-pressure chronic ulcer of right ankle limited to breakdown of skin; R60.0 Localized edema; I10 Essential (primary) hypertension; E03.9 Hypothyroidism, unspecified; M13.80 Other specified arthritis, unspecified site

== ENCOUNTER 2021-07-26 10:48 | Outpatient (RCR) | payer MEDICARE, BC ==
[~2021-07-26 10:48] MED LIST changes: +LIDOCAINE VISC 2% SOLN 15 ML UDC ONE; +MINERAL OIL/PETROLAT/GLYCERI 6OZ BTL ONE; +MUPIROCIN 2% OINT 22 GM TUBE ONE
[2021-07-26] MEDS ORDERED: GENTAMICIN SULFATE 15 GM CR TP ONE (15:52)
[2021-07-26] MEDS ORDERED: LIDOCAINE VISC 2% SOLN 15 ML UDC ONE (15:52)
== END 2021-08-04 ==
LOC: WCC 10:48
PROVIDERS: ATTEND Family Medicine Adult Medicine
DX: I87.311 Chronic venous hypertension (idiopathic) with ulcer of right lower extremity (principal); M96.89 Other intraoperative and postprocedural complications and disorders of the musculoskeletal system; L97.311 Non-pressure chronic ulcer of right ankle limited to breakdown of skin; I89.0 Lymphedema, not elsewhere classified; R60.0 Localized edema; I10 Essential (primary) hypertension; E03.9 Hypothyroidism, unspecified; M13.80 Other specified arthritis, unspecified site
CPT/HCPCS: 87071; 87186; 87205

== ENCOUNTER → 2021-07-28 | Outpatient (CLI) | payer MEDICARE, BC ==
[~2021-07-28] MED LIST changes: -LIDOCAINE VISC 2% SOLN 15 ML UDC ONE; -MINERAL OIL/PETROLAT/GLYCERI 6OZ BTL ONE; -MUPIROCIN 2% OINT 22 GM TUBE ONE
== END ==
LOC: DX 14:54
PROVIDERS: ATTEND Family Medicine Adult Medicine
DX: I87.311 Chronic venous hypertension (idiopathic) with ulcer of right lower extremity (principal); L97.311 Non-pressure chronic ulcer of right ankle limited to breakdown of skin

== ENCOUNTER 2021-09-01 13:20 | Outpatient (RCR) | payer MEDICARE, BC ==
[~2021-09-01 13:20] MED LIST changes: +GENTAMICIN SULFATE 15 GM CR TP ONE; +LIDOCAINE VISC 2% SOLN 15 ML UDC ONE; +TRIAMCINOLONE ACET 0.1% CREAM 15 GM TUBE ONE
== END 2021-09-04 ==
LOC: WCC 13:20
PROVIDERS: ATTEND Family Medicine Adult Medicine
DX: I87.311 Chronic venous hypertension (idiopathic) with ulcer of right lower extremity (principal); M96.89 Other intraoperative and postprocedural complications and disorders of the musculoskeletal system; L97.311 Non-pressure chronic ulcer of right ankle limited to breakdown of skin; I89.0 Lymphedema, not elsewhere classified; R60.0 Localized edema; I10 Essential (primary) hypertension; E03.9 Hypothyroidism, unspecified; M13.80 Other specified arthritis, unspecified site; B96.89 Other specified bacterial agents as the cause of diseases classified elsewhere

== ENCOUNTER 2021-09-28 14:18 | Outpatient (RCR) | payer MEDICARE, BC ==
[~2021-09-28 14:18] MED LIST changes: -GENTAMICIN SULFATE 15 GM CR TP ONE; -LIDOCAINE VISC 2% SOLN 15 ML UDC ONE; +LIDOCAINE/PRILOCAINE 2.5-2.5% KIT ONE; +MINERAL OIL/PETROLAT/GLYCERI 6OZ BTL ONE; -TRIAMCINOLONE ACET 0.1% CREAM 15 GM TUBE ONE
== END 2021-10-05 ==
LOC: WCC 14:18
PROVIDERS: ATTEND Podiatrist
DX: I87.311 Chronic venous hypertension (idiopathic) with ulcer of right lower extremity (principal); M96.89 Other intraoperative and postprocedural complications and disorders of the musculoskeletal system; L97.311 Non-pressure chronic ulcer of right ankle limited to breakdown of skin; I89.0 Lymphedema, not elsewhere classified; R60.0 Localized edema; I10 Essential (primary) hypertension; E03.9 Hypothyroidism, unspecified; M13.80 Other specified arthritis, unspecified site; B96.89 Other specified bacterial agents as the cause of diseases classified elsewhere
CPT/HCPCS: 87071; 87075; 87186; 87205

== ENCOUNTER 2021-11-02 14:55 | Outpatient (RCR) | payer MEDICARE, BC ==
[~2021-11-02 14:55] MED LIST changes: +LIDOCAINE VISC 2% SOLN 15 ML UDC ONE; -LIDOCAINE/PRILOCAINE 2.5-2.5% KIT ONE; +MINERAL OIL/PETROLAT/GLYCERI 2OZ CRM ONE
== END 2021-11-04 ==
LOC: WCC 14:55
PROVIDERS: ATTEND Podiatrist
DX: M96.89 Other intraoperative and postprocedural complications and disorders of the musculoskeletal system (principal); E11.40 Type 2 diabetes mellitus with diabetic neuropathy, unspecified; E11.42 Type 2 diabetes mellitus with diabetic polyneuropathy; S91.301A Unspecified open wound, right foot, initial encounter; I89.0 Lymphedema, not elsewhere classified; R60.0 Localized edema; I10 Essential (primary) hypertension; E03.9 Hypothyroidism, unspecified; M13.80 Other specified arthritis, unspecified site